=== PATIENT | female | born 2000 ===

== ENCOUNTER 2019-03-13 18:19 | Emergency (ER) | payer SELFPAY ==
[~2019-03-13] VITALS: Wt 64.3 kg
[2019-03-13 18:25] VITALS: BP 127/72; PULSE 91; RESP 16
== END 2019-03-13 20:00 | disposition left against medical advice (07) ==
LOC: FTE 18:19
DX: Z53.21 Procedure and treatment not carried out due to patient leaving prior to being seen by health care provider (principal)